=== PATIENT | male | born 1955 | race African-American/Black ===

== ENCOUNTER 2020-11-03 18:23 | Inpatient (IN) | payer BC, OTHER, SELFPAY ==
[~2020-11-03 18:23] MED LIST: Iopamidol 370 76% 100 ML VIAL ONE; Iopamidol 370 76% 50 ML VIAL FS ONE
[2020-11-03] MEDS ORDERED: Aspirin 300 MG Suppository ONE (18:30)
[2020-11-03] MEDS ORDERED: Heparin 10,000 UNITS/ 10 ML VIAL ONE ×2 (18:39→20:25)
[2020-11-03] MEDS ORDERED: Lidocaine 1% (PF) 30 ML VIAL ONE (18:47)
[2020-11-03 18:50] LABS: Hemoglobin 14.8 g/dL (14.0-18.0); Mean Corpuscular HGB CONC 30.8 g/dL (32.0-36.0); Mean Corpuscular Hemoglobin 28.3 pg (27.0-31.0); Mean Corpuscular Volume 91.7 fL (78.0-98.0); Mean Platelet Volume 8.9 fL (7.4-10.4); Platelet Count 163 thou/uL (130-400); Red Blood Cell (RBC) Count 5.24 mill/uL (4.70-6.10); White Blood Cell (WBC) Count 24.4 thou/uL (4.8-10.8)
[2020-11-03 18:53] LABS: INR-International Normal Ratio 1.3; PTT 48.1 sec (22.9-36.1); Prothrombin Time 16.6 sec (12.0-14.7)
[2020-11-03 19:06] LABS: ALT (SGPT) 403 U/L (8-55); AST (SGOT) 343 U/L (5-34); Albumin 3.6 g/dL (3.4-4.8); Alkaline Phosphatase 103 U/L (40-110); Anion Gap 24 mmol/L (10-20); BUN (Urea Nitrogen) 21 mg/dL (8.4-25.7); Band 15 % (5-11); Bilirubin, Total 0.3 mg/dL (0.2-1.2); Calc. Creatinine Clearance 0 mL/min (70-130); Calcium 8.7 mg/dL (7.8-10.44); Carbon Dioxide 17 mmol/L (23-31); Chloride 100 mmol/L (98-107); Eosinophils 1 % (0-10); Globulin 3.6 g/dL (2.4-3.5); Glucose 247 mg/dL (80-115); Hypochromia SLIGHT = 6-15 cells (100X) (0-5/hpf); Lipase 45 U/L (8-78); Lymphocytes 42 % (21-51); MDiff Complete? YES; Metamyelocyte 1 % (0-0); Monocytes 9 % (0-10); Neutrophil 22 % (42-75); Platelet Morphology Comment Appears Adequate; Potassium 4.1 mmol/L (3.5-5.1); Protein, Total 7.2 g/dL (5.8-8.1); Reactive Lymphocytes 10 % (0-10); Sodium 137 mmol/L (136-145)
[2020-11-03] MEDS ORDERED: Adenosine 6 MG/2 ML VIAL ONE (20:03)
[2020-11-03] MEDS ORDERED: Fentanyl 100 MCG/2 ML VIAL ONE ×2 (20:03→20:25)
[2020-11-03] MEDS ORDERED: Sodium Chloride 0.9% 1,000 ML IV SCH (20:30)
[2020-11-03] MEDS ORDERED: Clopidogrel Bisulfate 300 MG TAB ONE (20:32)
[2020-11-03] MEDS ORDERED: Propofol 1,000 MG/100 ML VIAL IV ONE (20:42)
[2020-11-03] MEDS ORDERED: Fentanyl CADD 100 ML ONE (20:59)
[2020-11-03 21:17] LABS: Actual Bicarbonate (HCO3a) 20.7 mEq/L (22-28); Base Excess (BEa) -7.8 mEq/L (-2.0 to +3.0); CO2 Tension 54.1 mmHg (35.0-45.0); Calcium, Ionized (arterial) 1.08 mmol/L (1.12-1.30); Carboxyhemoglobin (COHb) 0.2 gm% (0.0-3.0); Hemoglobin (Hb) 15.3 g/dL (14.0-18.0); O2 Tension (PaO2), arterial 67.9 mmHg (> 80.0); Potassium - ABG Lab 3.71 mmol/L (3.70-5.30)
[2020-11-03 21:18] LABS: Puncture Site Arterial Line
[2020-11-03 21:19] LABS: ALV-art Gradient 577.475 mmHg (0-20)
[2020-11-03] MEDS ORDERED: Sodium Bicarb 50 MEQ/50 ML Abboject 8.4% SYRINGE ONE (21:51)
[2020-11-03 21:53] LABS: Calcium 7.9 mg/dL (7.8-10.44); Phosphorus 6.9 mg/dL (2.3-4.7)
[2020-11-03] MEDS ORDERED: Sodium Bicarb 50 MEQ/50 ML Abboject 8.4% SYRINGE IVP SCH (22:00)
[2020-11-03 22:01] LABS: Lactic Acid 5.4 mmol/L (0.5-2.2); Troponin I 41.099 ng/mL (< 0.028)
[2020-11-03 22:42] VITALS: BMI 35.9
[2020-11-03] MEDS: DOPamine 400 MG/D5W 250 ML 250 ML IVPB PRN (22:49)
[2020-11-03] MEDS ORDERED: Propofol 1,000 MG/100 ML VIAL IV PRN (23:15)
[2020-11-03] MEDS ORDERED: Morphine 2 MG/ML VIAL SLOW IVP PRN (23:15)
[2020-11-03] MEDS ORDERED: DISCONTINUE PREVIOUS NARCOTIC PAIN MEDICATIONS AND BENZODIAZEPINES FS SCH (23:15)
[2020-11-03] MEDS ORDERED: Propofol BOLUS 1,000 MG/100 ML VIAL IV PRN (23:15)
[2020-11-03] MEDS ORDERED: Fentanyl BOLUS 250 ML IVPB PRN (23:15)
[2020-11-03] MEDS ORDERED: Fentanyl CADD 100 ML IV SCH (23:15)
[2020-11-04] MEDS: Lorazepam 2 MG/ML VIAL SLOW IVP PRN ×3 (00:15→16:49)
[2020-11-04] MEDS: Vecuronium 10 MG VIAL IV PRN ×2 (00:34→02:01)
[2020-11-04 01:51] LABS: Actual Bicarbonate (HCO3a) 14.5 mEq/L (22-28); Analyzer IN Cardio ER; Base Excess (BEa) -16.6 mEq/L (-2.0 to +3.0); CO2 Tension 55.4 mmHg (35.0-45.0); Calcium, Ionized (arterial) 1.14 mmol/L (1.12-1.30); Carboxyhemoglobin (COHb) 0.2 gm% (0.0-3.0); Hemoglobin (Hb) 15.8 g/dL (14.0-18.0); O2 Tension (PaO2), arterial 175.3 mmHg (> 80.0); Potassium - ABG Lab 3.98 mmol/L (3.70-5.30)
[2020-11-04 01:52] LABS: Puncture Site RRA; pH, Arterial 7.04 (7.35-7.45)
[2020-11-04] MEDS ORDERED: Vecuronium 10 MG VIAL ONE ×2 (01:58→06:25)
[2020-11-04 04:25] LABS: INR-International Normal Ratio 1.2; PTT 46.2 sec (22.9-36.1); Prothrombin Time 15.3 sec (12.0-14.7)
[2020-11-04 05:04] LABS: ALT (SGPT) 426 U/L (8-55); AST (SGOT) 681 U/L (5-34); Albumin 3.4 g/dL (3.4-4.8); Alkaline Phosphatase 80 U/L (40-110); Anion Gap 22 mmol/L (10-20); BUN (Urea Nitrogen) 34 mg/dL (8.4-25.7); Bilirubin, Total 0.7 mg/dL (0.2-1.2); Calc. Creatinine Clearance 46 mL/min (70-130); Calcium 8.1 mg/dL (7.8-10.44); Calcium 8.2 mg/dL (7.8-10.44); Carbon Dioxide 18 mmol/L (23-31); Chloride 100 mmol/L (98-107); Globulin 3.4 g/dL (2.4-3.5); Glucose 212 mg/dL (80-115); Magnesium 1.9 mg/dL (1.6-2.6); Potassium 4.1 mmol/L (3.5-5.1); Protein, Total 6.8 g/dL (5.8-8.1); Sodium 136 mmol/L (136-145)
[2020-11-04 06:04] LABS: CKMB 532.6 ng/mL (0-6.6)
[2020-11-04 06:06] LABS: Band 37 % (5-11); Hemoglobin 14.8 g/dL (14.0-18.0); Lymphocytes 7 % (21-51); MDiff Complete? YES; Mean Corpuscular HGB CONC 30.6 g/dL (32.0-36.0); Mean Corpuscular Hemoglobin 27.2 pg (27.0-31.0); Mean Corpuscular Volume 88.9 fL (78.0-98.0); Mean Platelet Volume 8.6 fL (7.4-10.4); Monocytes 5 % (0-10); Neutrophil 51 % (42-75); Platelet Count 182 thou/uL (130-400); RBC Distribution Width 11.9 % (11.5-14.5); Red Blood Cell (RBC) Count 5.45 mill/uL (4.70-6.10)
[2020-11-04] MEDS: DOPamine 400 MG/D5W 250 ML 250 ML IVPB PRN ×2 (06:48→14:18)
[2020-11-04 07:33] LABS: Actual Bicarbonate (HCO3a) 18.8 mEq/L (22-28); CO2 Tension 38.9 mmHg (35.0-45.0); Calcium, Ionized (arterial) 1.05 mmol/L (1.12-1.30); Carboxyhemoglobin (COHb) 0.8 gm% (0.0-3.0); Hemoglobin (Hb) 15.1 g/dL (14.0-18.0); Potassium - ABG Lab 4.47 mmol/L (3.70-5.30)
[2020-11-04 07:38] LABS: ALV-art Gradient 621.575 mmHg (0-20); O2 Tension (PaO2), arterial 42.8 mmHg (> 80.0); Puncture Site Arterial Line
[2020-11-04] MEDS ORDERED: Clopidogrel Bisulfate 75 MG TAB PO SCH (09:00)
[2020-11-04] MEDS ORDERED: Aspirin Chewable 81 MG TAB PO SCH (09:00)
[2020-11-04 11:40] LABS: #Basophils 0.1 thou/uL (0.0-0.2); #Lymphocytes 1.7 thou/uL (1.20-3.40); #Monocytes 1.1 thou/uL (0.11-0.59); #Neutrophils 18.7 thou/uL (1.40-6.50); %Basophils 0.6 % (0.0-1.0); %Eosinophils 0.1 % (0.0-10.0); %Lymphocytes 7.7 % (21.0-51.0); %Monocytes 5.3 % (0.0-10.0); %Neutrophils 86.4 % (42.0-75.0); Hemoglobin 14.6 g/dL (14.0-18.0); Mean Corpuscular HGB CONC 31.3 g/dL (32.0-36.0); Mean Corpuscular Hemoglobin 27.5 pg (27.0-31.0); Mean Corpuscular Volume 87.8 fL (78.0-98.0); Mean Platelet Volume 8.4 fL (7.4-10.4); Platelet Count 184 thou/uL (130-400); RBC Distribution Width 11.9 % (11.5-14.5); Red Blood Cell (RBC) Count 5.31 mill/uL (4.70-6.10); White Blood Cell (WBC) Count 21.6 thou/uL (4.8-10.8)
[2020-11-04 11:51] LABS: PTT 28.9 sec (22.9-36.1)
[2020-11-04 11:52] LABS: INR-International Normal Ratio 1.1; Prothrombin Time 14.5 sec (12.0-14.7)
[2020-11-04 12:28] LABS: Anion Gap 21 mmol/L (10-20); BUN (Urea Nitrogen) 39 mg/dL (8.4-25.7); Calc. Creatinine Clearance 40 mL/min (70-130); Calcium 7.9 mg/dL (7.8-10.44); Carbon Dioxide 18 mmol/L (23-31); Chloride 101 mmol/L (98-107); Glucose 170 mg/dL (80-115); Magnesium 1.8 mg/dL (1.6-2.6); Phosphorus 3.3 mg/dL (2.3-4.7); Potassium 3.7 mmol/L (3.5-5.1); Sodium 136 mmol/L (136-145)
[2020-11-04 15:38] LABS: CKMB 609.9 ng/mL (0-6.6)
[2020-11-04 17:12] VITALS: TEMP 98.8
[2020-11-04 18:05] VITALS: BP 82/62
[2020-11-04] MEDS ORDERED: Morphine 4 MG/ML VIAL SLOW IVP PRN (18:41)
[2020-11-04] MEDS ORDERED: Lorazepam 2 MG/ML VIAL SLOW IVP PRN (18:42)
== END 2020-11-04 18:44 | disposition expired | DRG 270 ==
LOC: ERS 18:23 → CCL 18:45 → CCU 18:50
PROVIDERS: ADMIT Internal Medicine Cardiovascular Disease; ATTEND Internal Medicine Cardiovascular Disease
PROC: 5A02210 Assistance with Cardiac Output using Balloon Pump, Continuous (ICD-10-PCS; principal; 2020-11-03)
PROC: 02703DZ Dilation of Coronary Artery, One Artery with Intraluminal Device, Percutaneous Approach (ICD-10-PCS; 2020-11-03)
PROC: 02C03ZZ Extirpation of Matter from Coronary Artery, One Artery, Percutaneous Approach (ICD-10-PCS; 2020-11-03)
PROC: 4A023N7 Measurement of Cardiac Sampling and Pressure, Left Heart, Percutaneous Approach (ICD-10-PCS; 2020-11-03)
PROC: B2111ZZ Fluoroscopy of Multiple Coronary Arteries using Low Osmolar Contrast (ICD-10-PCS; 2020-11-03)
PROC: 5A1935Z Respiratory Ventilation, Less than 24 Consecutive Hours (ICD-10-PCS; 2020-11-03)
DX: I21.09 ST elevation (STEMI) myocardial infarction involving other coronary artery of anterior wall (principal); S06.5X0A Traumatic subdural hemorrhage without loss of consciousness, initial encounter; I25.42 Coronary artery dissection; J96.01 Acute respiratory failure with hypoxia; G93.1 Anoxic brain damage, not elsewhere classified; I46.2 Cardiac arrest due to underlying cardiac condition; I10 Essential (primary) hypertension; E78.5 Hyperlipidemia, unspecified; V48.0XXA Car driver injured in noncollision transport accident in nontraffic accident, initial encounter; Y92.524 Gas station as the place of occurrence of the external cause
CPT/HCPCS: 33967; 36415; 36416; 36600; 51702; 70450; 71045; 76942; 80053; 82553; 82805; 83605; 83690; 83735; 84100; 84484; 85025; 85347; 85610; 85730; 86850; 86900; 86901; 87040; 92933; 93005; 93010; 93458; 94002; 94003; 94760; 95816; 95819; 95957; 96374; 96375; C1876; J0153; J1265; J1644; J2001; J2060; J2270; J2704; J3010; Q9967